=== PATIENT | female | born 1955 | race Caucasian/White ===

== ENCOUNTER 2024-10-27 11:44 | Day surgery (SDC) | payer MEDICARE ==
[~2024-10-27] VITALS: Ht 167.6 cm; Wt 67.3 kg
[~2024-10-27 11:44] MED LIST: Lactated Ringer's 1,000 ML IV ONE; propofoL 50 ML IV ONE
[2024-10-27] MEDS ORDERED: PROG100 (13:03)
[2024-10-27] MEDS ORDERED: ESTRADIOL (TWI1 EAC3 (13:04)
[2024-10-27] MEDS ORDERED: CELE100 (13:04)
[2024-10-27] MEDS ORDERED: Lactated Ringer's 1,000 ML IV ONE (13:54)
--- NOTE | 2024-10-27 14:59 | NUR ---
10/27/24 1451 NANCY LARA PT DENIES PAIN/NAUSEA IN ABDOMEN. REPORTS HEADACHE, OFFERED INTERVENTIONS BUT PT WOULD LIKE TO TRY COFFEE FIRST AND WILL TAKE MEDICINE AT HOME IF NEEDED.
== END 2024-10-27 14:59 | disposition home or self-care (01) ==
LOC: ORSCSDS 11:44
PROVIDERS: Internal Medicine Gastroenterology
PROC: 0DJ08ZZ Inspection of Upper Intestinal Tract, Via Natural or Artificial Opening Endoscopic (ICD-10-PCS; principal; 2024-10-27 13:30)
DX: R13.10 Dysphagia, unspecified (principal); K29.70 Gastritis, unspecified, without bleeding; K44.9 Diaphragmatic hernia without obstruction or gangrene; Z79.899 Other long term (current) drug therapy
CPT/HCPCS: 88305; 88312; 88342; C1726; J2704; J7120